=== PATIENT | female | born 1995 | race Caucasian/White ===

== ENCOUNTER → 2018-02-16 | Outpatient (CLI) | payer OTHER ==
[~2018-02-16] MED LIST: AMOX-559 PO; ETHI1TAB5 PO; METH4TAB66 PO
== END ==
LOC: AUD 08:00
PROVIDERS: ATTEND Otolaryngology
DX: R42 Dizziness and giddiness (principal); H93.12 Tinnitus, left ear
CPT/HCPCS: 92557; 92570